=== PATIENT | male | born 2000 | race Two or more races ===

== ENCOUNTER 2021-12-13 12:42 | Emergency (ER) | payer MEDICAID ==
[~2021-12-13] VITALS: Ht 177.8 cm; Wt 81.6 kg
[2021-12-13 13:06] VITALS: BP 113/76
[2021-12-13] MEDS ORDERED: METH750T22 PO (13:07)
[2021-12-13] MEDS ORDERED: IBUP800T27 PO (13:07)
== END 2021-12-13 13:21 | disposition home or self-care (01) ==
LOC: ER 12:42
DX: S29.012A Strain of muscle and tendon of back wall of thorax, initial encounter (principal); X50.0XXA Overexertion from strenuous movement or load, initial encounter; Y93.89 Activity, other specified; Y92.89 Other specified places as the place of occurrence of the external cause; Y99.8 Other external cause status